=== PATIENT | male | born 2000 | race Caucasian/White ===

== ENCOUNTER 2021-08-19 13:31 | Outpatient (CLI) | payer OTHER ==
[2021-08-21 10:35] LABS: HEPATITIS A IGM NON-REACTIVE (NON-REACTIVE); HEPATITIS B CORE ANTIBODY IGM NON-REACTIVE (NON-REACTIVE); HEPATITIS B SURFACE ANTIGEN NON-REACTIVE (NON-REACTIVE); HEPATITIS C ANTIBODY NON-REACTIVE (NON-REACTIVE)
[2021-08-21 13:46] LABS: HIV AG/AB 4TH GEN NON-REACTIVE (NON-REACTIVE)
[2021-08-22 14:11] LABS: NIL 0.02 IU/mL
== END 2021-08-19 13:32 | disposition home or self-care (01) ==
LOC: LAB.S 13:31
PROVIDERS: ATTEND Emergency Medicine
DX: Z02.5 Encounter for examination for participation in sport (principal)
CPT/HCPCS: 36415; 80074; 81599; 86480; 87389